=== PATIENT | male | born 1965 ===

== ENCOUNTER 2020-10-24 13:53 | Outpatient (CLI) | payer MEDICAID ==
[~2020-10-24] VITALS: Ht 175.3 cm; Wt 88.0 kg
[2020-10-24 14:22] VITALS: BP 117/89
--- NOTE | 2020-10-24 15:14 | Consultation ---
DATE OF CONSULTATION: 10/24/2020 GASTROENTEROLOGY CONSULTATION CONSULTING PHYSICIAN: Ori Erickson MD. CHIEF COMPLAINT: Stool OB positive. PAST MEDICAL HISTORY: None. PAST SURGICAL HISTORY: None. MEDICATIONS: None. FAMILY HISTORY: Noncontributory. SOCIAL HISTORY: The patient denies any tobacco, alcohol, or drug abuse. ALLERGIES: No known allergies. REVIEW OF SYSTEMS: Negative except for mild constipation. PHYSICAL EXAMINATION: VITAL SIGNS: Temperature 97.4, blood pressure 117/89, pulse 80, respirations 20. GENERAL: Height is 5 feet 9 inches, weight is 194. HEENT: Normocephalic and atraumatic. Sclerae are anicteric. NECK: Supple. No evidence of obvious lymphadenopathy. CARDIOVASCULAR: Regular rate and rhythm. Plus S1-S2. LUNGS: Clear to auscultation bilaterally. ABDOMEN: Positive bowel sounds. Soft and nontender. No rebound. No guarding. No peritoneal sign. EXTREMITIES: No cyanosis. No clubbing. No edema. ASSESSMENT AND PLAN: This is a 54-year-old male with FIT positive, needs endoscopy and colonoscopy. The patient was given instruction for both. Risks and benefits of procedure was explained to him. We will schedule him as soon as authorization is obtained. The patient also complained of some hemorrhoidal pain. The patient was given Anusol cream to use. Ori Erickson M.D. DR: PHILL JOB#: [id number] CC:
== END 2020-10-24 15:53 | disposition home or self-care (01) ==
LOC: PAN 13:53
DX: K92.1 Melena (principal); K59.00 Constipation, unspecified; K64.9 Unspecified hemorrhoids
CPT/HCPCS: 99203